=== PATIENT | female | born 1935 | race Caucasian/White ===

== ENCOUNTER → 2017-02-08 | Outpatient (CLI) | payer MEDICARE ==
[~2017-02-08] MED LIST: ACET-1600 PO; ACTEMRA IV; BENA5TAB2 PO; CALC600T4 PO; CEPH-376 PO; DIPH1TAB PO; ENOX60SY4 SC; FLUO20CA8 PO; IBUP200C8 PO; LEFL20TA16 PO; LEVO88TA4 PO; OMEP-110 PO; TRAZ50TA18 PO; VIT1TABL32 PO; WARF5TAB7 PO
== END | disposition home or self-care (01) ==
LOC: CFH 14:33
PROVIDERS: ATTEND Internal Medicine
DX: J84.10 Pulmonary fibrosis, unspecified (principal); R91.8 Other nonspecific abnormal finding of lung field; Z96.611 Presence of right artificial shoulder joint
CPT/HCPCS: 71020

== ENCOUNTER → 2017-04-18 | Outpatient (CLI) | payer MEDICARE | END | disposition home or self-care (01) | LOC: CFH 12:43 | PROVIDERS: ATTEND Internal Medicine | DX: R91.8 Other nonspecific abnormal finding of lung field (principal); M85.88 Other specified disorders of bone density and structure, other site; I51.7 Cardiomegaly | CPT/HCPCS: 71020 ==

== ENCOUNTER → 2017-05-19 | Outpatient (CLI) | payer MEDICARE | END | disposition home or self-care (01) | LOC: CARD 12:19 | PROVIDERS: ATTEND Nurse Practitioner | DX: J41.8 Mixed simple and mucopurulent chronic bronchitis (principal) | CPT/HCPCS: 94060; 94726; 94729 ==

== ENCOUNTER → 2017-08-12 | Outpatient (CLI) | payer MEDICARE ==
[~2017-08-12] MED LIST changes: +WARF-36 PO; -WARF5TAB7 PO
== END | disposition home or self-care (01) ==
LOC: CVU 15:43
PROVIDERS: ATTEND Surgery Vascular Surgery
DX: I65.23 Occlusion and stenosis of bilateral carotid arteries (principal); I10 Essential (primary) hypertension
CPT/HCPCS: 93880

== ENCOUNTER → 2018-04-27 | Outpatient (CLI) | payer MEDICARE ==
[~2018-04-27] MED LIST changes: -BENA5TAB2 PO; +BENA5TAB3 PO; -TRAZ50TA18 PO; +TRAZ50TA66 PO
== END | disposition home or self-care (01) ==
LOC: CFH 12:31
PROVIDERS: ATTEND Nurse Practitioner
DX: J84.9 Interstitial pulmonary disease, unspecified (principal); I70.0 Atherosclerosis of aorta; M85.88 Other specified disorders of bone density and structure, other site; M47.814 Spondylosis without myelopathy or radiculopathy, thoracic region; J41.8 Mixed simple and mucopurulent chronic bronchitis
CPT/HCPCS: 71250

== ENCOUNTER 2018-07-10 12:33 | Outpatient (CLI) | payer MEDICARE ==
[~2018-07-10 12:33] MED LIST changes: +LIDOCAINE-MPF 1%, 5ML ONE; +ROPivacaine/PF 0.2%, 10 ML ONE
== END 2018-07-10 23:59 | disposition home or self-care (01) ==
LOC: RAD 12:33
PROVIDERS: ATTEND Orthopaedic Surgery
DX: M06.812 Other specified rheumatoid arthritis, left shoulder (principal)
CPT/HCPCS: 23350; 73040; 73200; J2795; Q9965

== ENCOUNTER 2018-11-29 15:43 | Outpatient (CLI) | payer MEDICARE ==
[~2018-11-29 15:43] MED LIST changes: -LIDOCAINE-MPF 1%, 5ML ONE; -ROPivacaine/PF 0.2%, 10 ML ONE
== END 2018-11-29 23:59 | disposition home or self-care (01) ==
LOC: CVU 15:43
PROVIDERS: ATTEND Surgery Vascular Surgery
DX: I65.23 Occlusion and stenosis of bilateral carotid arteries (principal); I10 Essential (primary) hypertension
CPT/HCPCS: 93880